=== PATIENT | female | born 1960 | race Two or more races ===

== ENCOUNTER 2020-01-18 05:03 | Inpatient (IN) | payer MEDICAID ==
[~2020-01-18] VITALS: Ht 144.8 cm; Wt 59.0 kg
[2020-01-18] MEDS ORDERED: IV NS 0.9% 1,000 ML IV PRN (06:30)
[2020-01-18] MEDS ORDERED: ACETAMINOPHEN 325 MG TABLET PO PRN (06:30)
[2020-01-18] MEDS ORDERED: ZOLPIDEM TARTRATE 5 MG TABLET PO PRN (06:30)
[2020-01-18] MEDS ORDERED: ONDANSETRON HCL/PF 4 MG/2 ML VIAL IVP PRN (06:30)
[2020-01-18] MEDS ORDERED: Z GUARD REMEDY 2 OZ OINT TP PRN (06:30)
[2020-01-18] MEDS ORDERED: CEFTRIAXONE 1 G VIAL IV SCH (06:30)
[2020-01-18] MEDS ORDERED: MAGNESIUM HYDROXIDE 30 ML UDC PO PRN (06:30)
[2020-01-18] MEDS ORDERED: MAG HYDROX/AL HYDROX/SIMETH 30 ML UDC PO PRN (06:30)
--- NOTE | 2020-01-18 06:35 | NUR ---
STRATEGIC PLANNING MANAGER NOTES RECEIVED PATIENT FROM [facility], ACCOMPANIED BY 2 EMT VIA [place] NETTLES TRANSFERRED TO BED, AWAKE ALERT AND ORIENTED X4, ABLE TO MAKE NEEDS KNOWN, RESPIRATIONS EVEN AND UNLABORED WITH EQUAL RISE AND FALL OF CHEST, DENIES ANY PAIN OR DISCOMFORT AT THIS TIME, VS TAKEN 155/72,105,18,102.1 TEMP ORAL , 97% ON RA. PLACED ON GRAPHIC TECHNICIAN ST. IV SITE TO LEFT WRIST #20 AND RIGHT FA #20 NO REDNESS NOTED TO SITE, MADE AWARE OF FINDINGS , COOLING MEASURES INITIATED FOR TEMP OF 102.1. AWAITING TYLENOL TO BE VERIFIED. REMAINS COMFORTABLE AT THIS ORIENTED TO STAFF AND CALL LIGHT AND KEPT WITHIN REACH,LOW BED AND LOCKED, BED ALARM IN PLACE, WILL ENDORSE TO NEXT SHIFT.
--- NOTE | 2020-01-18 07:43 | NUR ---
MS/RN OPENING NOTES RECEIVED PATIENT ON BED AWAKE ALERT AND ORIENTED X4. PATIENT DENIES PAIN AT THIS TIME. PATIENT IN NO APPARENT RESPIRATORY DISTRESS NOTED. WILL CONTINUE TO MONITOR.
[2020-01-18 08:00] VITALS: BP 113/48
[2020-01-18 08:21] LABS: ALBUMIN 2.8 g/dL (3.4-5.0); BILIRUBIN,TOTAL 0.5 mg/dL (0.2-1.0); CALCIUM, SERUM 8.5 mg/dL (8.5-10.1); MAGNESIUM 1.5 mg/dL (1.8-2.4); PHOSPHORUS 3.9 mg/dL (2.5-4.9); POTASSIUM 3.5 mmol/L (3.5-5.1); TOTAL PROTEIN, SERUM 6.7 g/dL (6.4-8.2)
[2020-01-18 08:22] LABS: BASOPHILS % (AUTO) 0.7 % (0.0-2.0); EOSINOPHILS % (AUTO) 0.3 % (0.0-6.0); HEMATOCRIT 27 % (33-45); HEMOGLOBIN 9.1 g/dL (11.5-14.8); LYMPHOCYTES # (AUTO) 0.5 /CMM (0.8-4.8); LYMPHOCYTES % (AUTO) 33.4 % (20.0-44.0); MEAN CORPUSCULAR HGB CONC 34 g/dl (31.0-36.0); MEAN CORPUSCULAR VOLUME 103 fL (82-100); MONOCYTES % (AUTO) 0.8 % (2.0-12.0); NEUTROPHILS # (AUTO) 0.9 /CMM (1.8-8.9); NEUTROPHILS % (AUTO) 64.8 % (43.0-81.0); PLATELET COUNT (AUTO) 290 /CMM (150-450); RED BLOOD CELL COUNT(AUTO) 2.62 MIL/uL (4.0-5.2)
[2020-01-18 08:26] LABS: WHITE BLOOD COUNT (AUTO) 1.3 K/uL (4.3-11.0)
--- NOTE | 2020-01-18 08:30 | NUR ---
MS/RN NOTES WBC 1.3 DR. NOE IS AWARE. NO NEW ORDER AT THIS TIME.
[2020-01-18 08:45] LABS: BAND % (MANUAL) 2 % (0.0-5.0); LYMPHOCYTES % (MANUAL) 37 % (16-48); NEUTROPHILS % (MANUAL) 61 (42-76)
[2020-01-18] MEDS ORDERED: ASPI-1169 PO (08:55)
[2020-01-18] MEDS ORDERED: ATOR20TA PO (08:55)
[2020-01-18] MEDS ORDERED: METF-440 PO (08:55)
[2020-01-18] MEDS ORDERED: LISI-603 PO (08:55)
[2020-01-18] MEDS: CEFTRIAXONE 1 G in IV D5W 50 ML IV SCH (10:18)
[2020-01-18] MEDS ORDERED: DEXTROSE 50%-WATER 50 ML DISP.SYRIN IV PRN (10:30)
[2020-01-18] MEDS ORDERED: *INSULIN REGULAR(HUMULIN R)HUM 100 UNIT/ML VIAL SQ PRN (10:30)
--- NOTE | 2020-01-18 10:45 | NUR ---
MS/RN NOTES DVT PUMP ON, MRSA SWAB DONE AT LEFT NARES, SPECIMEN SENT TO LAB
[2020-01-18] MEDS: Magnesium 1GM/D5W 100ML PREMIX 100 ML IV SCH ×2 (11:15→12:44)
[2020-01-18] MEDS: INSULIN REGULAR, HUMAN 100 UNIT/ML 3 ML VIAL SQ PRN ×2 (11:28→17:12)
[2020-01-18] MEDS: BLOOD SUGAR DIAGNOSTIC 1 EACH STRIP VI SCH ×3 (11:28→21:09)
--- NOTE | 2020-01-18 11:33 | NUR ---
MS/RN NOTES PATIENT COMPLAINED OF PAIN RATED 7/10 NORCO 5/325 MG 1 TAB WAS GIVEN WILL CONTINUE TO MONITOR.
[2020-01-18] MEDS: HYDROCODONE/APAP 5/325MG TABLET PO PRN ×2 (11:35→20:00)
[2020-01-18 16:00] VITALS: BP 102/58
[2020-01-18] MEDS: METFORMIN 500 MG TABLET PO SCH (16:41)
--- NOTE | 2020-01-18 17:18 | NUR ---
MS/RN NOTES DR. NOE ORDER LOVENOX 40 MG SUBCUTANEOUS DAILY. NOTED AND CARRIED OUT.
--- NOTE | 2020-01-18 19:00 | NUR ---
RN MS OPENING NOTES RECEIVED PATIENT IN BED AWAKE ALERT AND ORIENTED X4 ,RESPIRATIONS EVEN AND UNLABORED WITH EQUAL RISE AND FALL OF CHEST,IV SITE TO LEFT WRIST #20 INTACT, RIGHT FA #20 INTACT,NO REDNESS, NO INFILTRATION, ORIENTED TO STAFF AND CALL LIGHT AND KEPT WITHIN REACH, LOW BED AND LOCKED, ALL NEEDS ATTENDED AT THIS TIME, WILL CONTINUE TO MONITOR.
--- NOTE | 2020-01-18 19:04 | NUR ---
MS/RN CLOSING NOTES PATIENT IS ON BED. ALERT AND ORIENTED X4. DENIES PAIN AT THIS TIME.PATIENT IN NO APPARENT RESPIRATORY DISTRESS NOTED. IV ACCESS AT LEFT FOREARM # 20 G PATENT AND INTACT,RIGHT FOREARM #20G WITH IV FLUID OF NS 1L AT 75 ML/HR ON AND INFUSING WELL. SEEN AND EXAMINED BY MD WITH ORDERS MADE AND CARRIED OUT. SAFETY PRECAUTION WAS IN PLACED. BED IN LOWEST POSITION AND LOCKED. SIDE RAIL UP X2. CALL LIGHT WITHIN REACH. WILL ENDORSED TO WORLD RENOWNED CHEF AND [employer]UR[employer] OWNER FOR LORAINE.
[2020-01-18 20:00] VITALS: BP 101/56
--- NOTE | 2020-01-18 20:00 | NUR ---
RN MS NOTES PATIENT COMPLAINED OF PAIN TO BACK SHOULDER AREA STATES 10/06 REQUESTED FOR NORCO PRN. VS WNL.NORCO PRN GIVEN WILL CONTINUE TO MONITOR FOR EFFECTIVENESS.
--- NOTE | 2020-01-18 20:50 | NUR ---
RN MS NOTES RECEIVED CALL FROM [facility] FOR BLOOD CULTURES RESULTS POSITIVE GROWTH. ECOLI, GRAM NEGATIVE RODS PRESENT. HOSPITALIST IMTIAZ MADE AWARE , NO NEW ORDERS AT THIS TIME CONTINUE CURRENT ABX ORDERED. LABS RESULTS FILED IN CHART UNDER LABS
[2020-01-18] MEDS ORDERED: ENOXAPARIN SODIUM 40 MG/0.4 ML DISP.SYRIN SQ SCH (21:00)
[2020-01-18] MEDS ORDERED: ATORVASTATIN 10 MG TABLET PO SCH (22:00)
[2020-01-19] MEDS: BLOOD SUGAR DIAGNOSTIC 1 EACH STRIP VI SCH ×2 (06:08→12:14)
[2020-01-19] MEDS: INSULIN REGULAR, HUMAN 100 UNIT/ML 3 ML VIAL SQ PRN ×2 (06:09→12:15)
[2020-01-19 06:19] LABS: BASOPHILS # (AUTO) 0.1 /CMM (0.0-0.2); BASOPHILS % (AUTO) 0.4 % (0.0-2.0); EOSINOPHILS % (AUTO) 1.2 % (0.0-6.0); HEMATOCRIT 25 % (33-45); HEMOGLOBIN 8.3 g/dL (11.5-14.8); LYMPHOCYTES # (AUTO) 3.1 /CMM (0.8-4.8); LYMPHOCYTES % (AUTO) 22.5 % (20.0-44.0); MEAN CORPUSCULAR HGB CONC 34 g/dl (31.0-36.0); MEAN CORPUSCULAR VOLUME 103 fL (82-100); MONOCYTES % (AUTO) 7.3 % (2.0-12.0); NEUTROPHILS # (AUTO) 9.5 /CMM (1.8-8.9); NEUTROPHILS % (AUTO) 68.6 % (43.0-81.0); PLATELET COUNT (AUTO) 293 /CMM (150-450); RED BLOOD CELL COUNT(AUTO) 2.38 MIL/uL (4.0-5.2); WHITE BLOOD COUNT (AUTO) 13.8 K/uL (4.3-11.0)
[2020-01-19 06:26] LABS: CALCIUM, SERUM 8.4 mg/dL (8.5-10.1); CREATININE 1.2 mg/dL (0.6-1.3); MAGNESIUM 2.7 mg/dL (1.8-2.4); PHOSPHORUS 3.6 mg/dL (2.5-4.9); POTASSIUM 3.6 mmol/L (3.5-5.1)
--- NOTE | 2020-01-19 06:47 | NUR ---
RN MS CLOSING NOTES PATIENT IN BED AWAKE ALERT AND ORIENTED X4 ,RESPIRATIONS EVEN AND UNLABORED WITH EQUAL RISE AND FALL OF CHEST,IV SITE TO LEFT WRIST #20 INTACT, RIGHT FA #20 INTACT, IVF RUNNING ORDERED, NO REDNESS, NO INFILTRATION, CALL LIGHT KEPT WITHIN REACH, LOW BED AND LOCKED, TOILETING , SNACKS AND FLUIDS PROVIDED AND MET, ALL NEEDS ATTENDED AT THIS TIME, WILL CONTINUE TO MONITOR AND ENDORSE TO NEXT SHIFT.NORCO PRN WAS EFFECTIVE.
[2020-01-19 08:00] VITALS: BP 106/62
--- NOTE | 2020-01-19 08:00 | NUR ---
RN NOTES PATIENT RECEIVED IN THE BED EATING, A/O X3, NO ACUTE RESPIRATORY DISTRESS, V/S WNL, ADMINISTERED SCHEDULED MEDICATION. PATIENT REFUSED PAIN, INFUSING NS AT 75 ML/HR ON RIGHT FA INTACT. PATIENT TOLERATED BREAKFAST WELL, USING BATHROOM. SAFETY PRECAUTION MAINTAINED ALL THE TIME. CALL LIGHT WITHIN TO REACH. WILL CONTINUED MONITORING.
[2020-01-19] MEDS: METFORMIN 500 MG TABLET PO SCH (08:17)
[2020-01-19 08:20] VITALS: BP 106/62
[2020-01-19] MEDS: CEFTRIAXONE 1 G in IV D5W 50 ML IV SCH (08:23)
[2020-01-19] MEDS ORDERED: LISINOPRIL (20MG) 20 MG TABLET PO SCH (09:00)
[2020-01-19] MEDS ORDERED: ASPIRIN 81 MG TAB.CHEW PO SCH (09:00)
[2020-01-19] MEDS ORDERED: LEVO500T90 PO (09:15)
[2020-01-19] MEDS ORDERED: LISI-603 PO (09:15)
[2020-01-19] MEDS ORDERED: ATOR20TA PO (09:15)
--- NOTE | 2020-01-19 12:16 | NUR ---
RN NOTES BS-346 MG/DL COVERAGE GIVEN. PLAN TO D/C HOME PER HOSPITALIST Dr NOE.
--- NOTE | 2020-01-19 13:28 | NUR ---
CONSTRUCTION FLAGGER NOTES PATIENT DISCHARGE HOME SELF CARE AT THIS PRICILA. PATIENT STABLE V/S WNL, REFUSED PAIN. MED RECONCILIATION AND DISCHARGE ORDER REVIEWED AND EXPLAINED TO PATIENT. PATIENT VERBALIZED UNDERSTANDING. ENCOURAGED TO TAKE PRESCRIBED MEDICATION ORDERED, AND INCREASE FLUID INTAKE. PRESCRIPTION HANDED TO THE PATIENT . PATIENT SIGN PAPERWORK . BELONGING WITH THE PATIENT. PATIENT WILL FOLLOW PCP IN ONE WEEK. ESCORTED PATIENT LOBBY FOR SAFETY. PATIENT SURFACE TO [employer] OFFICER BY DAUGHTER. NAME YVETTE PHONE# [phone].
== END 2020-01-19 13:09 | disposition home or self-care (01) | DRG 720 ==
LOC: TELE 06:18 → MED 10:04
PROVIDERS: ADMIT Internal Medicine; ATTEND Internal Medicine
DX: A41.9 Sepsis, unspecified organism (principal); N39.0 Urinary tract infection, site not specified; R65.21 Severe sepsis with septic shock; G93.41 Metabolic encephalopathy; N17.0 Acute kidney failure with tubular necrosis; Z86.73 Personal history of transient ischemic attack (TIA), and cerebral infarction without residual deficits; I10 Essential (primary) hypertension; E11.9 Type 2 diabetes mellitus without complications; E83.42 Hypomagnesemia; D72.819 Decreased white blood cell count, unspecified; D50.9 Iron deficiency anemia, unspecified; Z79.84 Long term (current) use of oral hypoglycemic drugs
CPT/HCPCS: 36415; 80048-TC; 80053-TC; 80061-TC; 82962-TC; 83605-TC; 83735-TC; 84100-TC; 85025-TC; 87081-TC; G0378; J0696; J1650; J1815; J3475; J7030; J7060